=== PATIENT | female | born 1970 | race Caucasian/White ===

== ENCOUNTER 2017-02-12 15:29 | Emergency (ER) | payer OTHER ==
[~2017-02-12] VITALS: Ht 167.6 cm; Wt 72.7 kg
[2017-02-12 15:44] VITALS: Ht 167.6 cm; Wt 72.7 kg
[2017-02-12 16:22] LABS: ADD UMIC YES; URINE BILIRUBIN (Dip) 1+ (NEGATIVE); URINE BLOOD (Dip) NEGATIVE (NEGATIVE); URINE COLOR YELLOW (YELLOW); URINE GLUCOSE (Dip) NEGATIVE (NEGATIVE); URINE KETONES (Dip) 3+ (NEGATIVE); URINE LEUKOCYTE ESTERASE (Dip) NEGATIVE (NEGATIVE); URINE NITRITE (Dip) NEGATIVE (NEGATIVE); URINE TOTAL PROTEIN (Dip) 2+ (NEGATIVE); URINE UROBILINOGEN (Dip) 0.2 E.U./dL (0.1-1.0)
[2017-02-12 16:29] LABS: ADD SCAN DIFF NO
[2017-02-12 16:30] LABS: BASOPHILS % 0.3 % (0.0-2.0); EOSINOPHILS % 0.1 % (0.0-7.0); HEMATOCRIT 46.8 % (37.0-47.0); HEMOGLOBIN 15.3 g/dl (12.0-16.0); LYMPHOCYTES # 1.4 10^3/ul (0.8-2.9); LYMPHOCYTES % 14.3 % (15.0-51.0); MEAN CORPUSCULAR HGB CONC 32.7 g/dl (32.0-37.0); MEAN CORPUSCULAR VOLUME 88.6 fl (82.0-101.0); MEAN PLATELET VOLUME 11.1 fl (7.4-10.4); MONOCYTE # 0.5 10^3/ul (0.3-0.9); MONOCYTES % 5.2 % (0.0-11.0); NEUTROPHILS % 79.8 % (39.0-77.0); PLATELET COUNT 228 10^3/UL (140-415); RED BLOOD COUNT 5.28 10^6/ul (4.20-5.40); RED CELL DISTRIBUTION WIDTH 12.8 % (11.5-14.5)
[2017-02-12 16:35] LABS: ICTOTEST NEGATIVE (NEGATIVE); SQUAMOUS EPITHELIAL CELL,UR MODERATE
[2017-02-12 16:36] LABS: BACTERIA,URINE FEW; MUCUS,URINE MODERATE; URINE RBCS NONE SEEN /HPF (0)
[2017-02-12 16:40] LABS: ALBUMIN 5.1 g/dl (3.3-4.9); POTASSIUM 3.8 mmol/L (3.5-5.1)
[2017-02-12 16:42] LABS: CREATININE 0.62 mg/dl (0.44-1.00)
[2017-02-12 16:43] LABS: ALBUMIN/GLOBULIN RATIO 1.41; BILIRUBIN,INDIRECT 0.4 mg/dl (0-1.1); BILIRUBIN,TOTAL 0.4 mg/dl (0.2-1.3); TOTAL PROTEIN 8.7 g/dl (6.1-8.1)
[2017-02-12 16:44] LABS: CALCIUM 9.7 mg/dl (8.4-10.2)
[2017-02-12] MEDS ORDERED: QUET200T PO (17:28)
[2017-02-12] MEDS ORDERED: VENL150T PO (17:28)
[2017-02-12] MEDS ORDERED: CYCL5TAB PO (17:29)
[2017-02-12] MEDS ORDERED: OMEG10006 PO (17:29)
[2017-02-12] MEDS ORDERED: ESTR1TAB23 PO (17:30)
[2017-02-12] MEDS ORDERED: HYDR200T39 PO (17:30)
--- NOTE | 2017-02-12 18:46 | RADRPT ---
PROCEDURE: CT brain without contrast CLINICAL INDICATION: Altered level of consciousness TECHNIQUE: CT of the brain without contrast performed on a multidetector CT scanner, with multiplan ar reformats. One or more of the following dose reduction techniques were used: Automated exposure control, adjustment in mA and / or kV according to patient size, use of iterative reconstructive chayito hnique. CTDIvol = 43 mGy; DLP = a 720 mGy-cm. COMPARISON: None available FINDINGS: No acute intracranial hemorrhage is identified. No extra-axial fluid collection is seen. There is no mass effect. No midline shift is identified. Ventricles and sulci are mildly enlarged compatible with volume loss. The density of the brain is unremarkable. Lerma-white differentiation is preserved. Osseous structures are unremarkable. Mastoid air cells and imaged paranasal sinuses grossly clear. IMPRESSION: 1. No evidence of acute intracranial pathology. 2. Mild volume loss. RPTAT: EE .Frankie Robles MD, MD Date Time Electronically viewed and signed by .Frankie Robles MD, MD on 02/12/2017 18:46 .O/
[2017-02-12] MEDS ORDERED: SOD CHLORIDE 0.9% 500 ML IV ONE (19:00)
--- NOTE | 2017-02-12 21:19 | PSY ---
Date/Time of Note Date/Time of Note DATE: 02/12/17 TIME: 21:12 Psychiatric Subjective Eval Consent Pt consented to telemedicine: Yes Subjective Evaluation Patient location: emergency Chief Complaint: Brought in by EMS for "emotional behaviour", patient not speaking Reason for consult: Psychiatric evaluation History of present illness Patient is a 46 year old female with a known history of schizophrenia who was brought in after neighbors reported that they had not seen her and she had been acting emotional. Pt has been mute for about one year and has not provided much information. Pt is willing to nod "yes" or "no" to some questions. She admits to be admitted to psychiatric facilities before and also admits to past suicide attempts. She did nod "yes" for feeling sad, not sleeping and hearing voices/sounds that might not be there. These voices bother her. She nodded "no " to suicidal ideation. For some questions she would raise her right arm into the air and perform a movement. Past psychiatric history Schizophrenia. Not on medications Hospitalization: yes Family History Unknown Medical history See medical record. None known. Allergies: Coded Allergies: No Known Allergy (Unverified , 02/12/17) Substance Abuse Substance use: No known substance abuse Social History Marital status: (POssibly going through divorce per report) Level of education: Unknown DPA/Conservatorship: No Occupation/Care Home: Unknown Psychiatric Objective Eval Physical Examination: Physical Examination: Applicable Sleep: Insomnia Mental Status Examination: Appearance: Disheveled Eye Contact: Fair Psychomotor Activity: Slow Behavior: Bizarre Speech: Other (Mostly mute) AFFECT: Flat Mood: Depressed Though Process: Illogical Thought Content: Hallucinations Suicidal: No Homicidal: No On 72 hour hold: No Orientation: x2 Cognition: Alert Insight: Impared Judgement: Impared Laboratory Results Laboratory Tests Test 02/12/17 16:07 02/12/17 16:17 02/12/17 16:19 02/12/17 16:20 Urine Color YELLOW Urine Clarity CLOUDY Urine pH 5.5 Urine Specific [place] >=1.030 Urine Ketones 3+ Urine Nitrite NEGATIVE Urine Bilirubin 1+ Urine Ictotest NEGATIVE Urine Urobilinogen 0.2 E.U./dL Urine Leukocyte Esterase NEGATIVE Urine Microscopic RBC NONE SEEN/HPF Urine Microscopic WBC 0-2/HPF Urine Squamous Epithelial Cells MODERATE Urine Amorphous Urates FEW Urine Bacteria FEW Urine Hyaline Casts FEW Urine Mucus MODERATE Urine Hemoglobin NEGATIVE Urine Glucose NEGATIVE% Urine Total Protein 2+ Bedside Glucose 83mg/dL White Blood Count 10.010^3/ul Red Blood Count 5.2810^6/ul Hemoglobin 15.3g/dl Hematocrit 46.8% Mean Corpuscular Volume 88.6fl Mean Corpuscular Hemoglobin 29.0pg Mean Corpuscular Hemoglobin Concent 32.7g/dl Red Cell Distribution Width 12.8% Platelet Count 30126^3/UL Mean Platelet Volume 11.1fl Neutrophils % 79.8% Lymphocytes % 14.3% Monocytes % 5.2% Eosinophils % 0.1% Basophils % 0.3% Nucleated Red Blood Cells % 0.0/100WBC Neutrophils # 8.010^3/ul Lymphocytes # 1.410^3/ul Monocytes # 0.510^3/ul Eosinophils # 0.010^3/ul Basophils # 0.010^3/ul Nucleated Red Blood Cells # 0.010^3/ul Sodium Level 144mmol/L Potassium Level 3.8mmol/L Chloride Level 103mmol/L Carbon Dioxide Level 26mmol/L Anion Gap 19 Blood Urea Nitrogen 9mg/dl Creatinine 0.62mg/dl Glucose Level 88mg/dl Calcium Level 9.7mg/dl Total Bilirubin 0.4mg/dl Direct Bilirubin 0.00mg/dl Indirect Bilirubin 0.4mg/dl Aspartate Amino Transf (AST/SGOT) 22IU/L Alanine Aminotransferase (ALT/SGPT) 24IU/L Alkaline Phosphatase 70IU/L Total Protein 8.7g/dl Albumin 5.1g/dl Globulin 3.60g/dl Albumin/Globulin Ratio 1.41 Lactic Acid Level 1.2mmol/L Assessment and Plan Assessment/Diagnosis [place] I: F20.9 Schizophrenia Recommendation/Plan Medication Management Per inpatient psychiatry. Psychotherapy N.A Pt. Caregiver/Family Education N/A Follow-up/Disposition Please initiate 5150 for grave disability and danger to self. While she shakes her head "no" for suicidal ideation, she is a risk for self harm due to the GD. 5150 Recommendation: Josse SATNAM Melara Feb 12, 2017 21:19
[2017-02-12 22:05] LABS: BARBITURATES Negative (NEGATIVE); BENZODIAZEPINES Negative (NEGATIVE); CANNABINOIDS Negative (NEGATIVE); COCAINE Negative (NEGATIVE); OPIATES Negative (NEGATIVE)
--- NOTE | 2017-02-13 00:27 | ERD ---
ER Documentation Chief Complaint Date/Time DATE: 02/13/17 TIME: 00:22 Chief Complaint Brought in by EMS for "emotional behaviour", patient not speaking HPI 38-year-old female brought in by EMS for decrease communication and staying in bed all the time, not taking psychiatric medications and generally decreased mental status and weakness. Patient's friend who is present emergency room is the one who sent her here. Patient is not answering many questions but is willing to speak to me in Maltese. She states that she has not taken her medications for several days but denies any pain except for feeling very depressed. Her friend states that she has gotten this way before when she does not take her medications. She denies nausea or vomiting. She is not an excellent historian and refuses to answer some questions. ROS All systems reviewed and are negative except as per history of present illness the patient is refusing answer some questions and may not be reliable.. Medications Home Meds Reported Medications Estradiol* (Estrace*) 1 Mg Tablet, 0.5 MG PO DAILY, TAB 02/12/17 Hydroxychloroquine Sulfate* (Hydroxychloroquine Sulfate*) 200 Mg Tablet, 200 MG PO BID, TAB 02/12/17 Cyclobenzaprine Hcl* (Cyclobenzaprine Hcl*) 5 Mg Tablet, 5 MG PO QHS Y for MUSCLE SPASMS, #60 TAB 02/12/17 [place]-3 Fatty Acids (OMEGA-3) 1,000 Mg Capsule, 1000 MG PO BID, CAP 02/12/17 Quetiapine Fumarate* (Seroquel*) 200 Mg Tablet, 200 MG PO HS, #30 TAB 02/12/17 Venlafaxine Hcl* (Venlafaxine Hcl ER*) 150 Mg Tab.er.24, 150 MG PO DAILY, TAB.SA 02/12/17 Allergies Allergies: Coded Allergies: No Known Allergy (Unverified , 02/12/17) PMhx/Soc Medical and Surgical Hx: Unable to obtain Hx Alcohol Use: No Hx Substance Use: No Hx Tobacco Use: No Smoking Status: Never smoker Physical Exam Vitals Vital Signs Date Time Temp Pulse Resp B/P Pulse Ox O2 Delivery O2 Flow Rate FiO2 02/13/17 00:00 79 18 140/82 98 Room Air 02/12/17 19:56 99.2 100 16 165/96 Room Air 02/12/17 15:44 97.2 100 18 185/98 100 Physical Exam Const: [] No distress Head: Atraumatic Eyes: Normal Conjunctiva ENT: Normal External Ears, Nose and Mouth. Neck: Full range of motion..~ No meningismus. Resp: Clear to auscultation bilaterally Cardio: Regular rate and rhythm, no murmurs Abd: Soft, non tender, non distended. Normal bowel sounds Skin: No petechiae or rashes Back: No midline or flank tenderness Ext: No cyanosis, or edema Neur: Awake and alert Psych: Normal Mood and Affect Result Diagram: 02/12/17 1619 02/12/17 1619 Results 24 hrs Laboratory Tests Test 02/12/17 16:07 02/12/17 16:17 02/12/17 16:19 02/12/17 16:20 Urine Color YELLOW Urine Clarity CLOUDY Urine pH 5.5 Urine Specific [place] >=1.030 Urine Ketones 3+ Urine Nitrite NEGATIVE Urine Bilirubin 1+ Urine Ictotest NEGATIVE Urine Urobilinogen 0.2 E.U./dL Urine Leukocyte Esterase NEGATIVE Urine Microscopic RBC NONE SEEN/HPF Urine Microscopic WBC 0-2/HPF Urine Squamous Epithelial Cells MODERATE Urine Amorphous Urates FEW Urine Bacteria FEW Urine Hyaline Casts FEW Urine Mucus MODERATE Urine Hemoglobin NEGATIVE Urine Glucose NEGATIVE% Urine Total Protein 2+ Urine Opiates Screen Negative Urine Barbiturates Negative Urine Amphetamines Screen Negative Urine Benzodiazepines Screen Negative Urine Cocaine Screen Negative Urine Cannabinoids Negative Bedside Glucose 83mg/dL White Blood Count 10.010^3/ul Red Blood Count 5.2810^6/ul Hemoglobin 15.3g/dl Hematocrit 46.8% Mean Corpuscular Volume 88.6fl Mean Corpuscular Hemoglobin 29.0pg Mean Corpuscular Hemoglobin Concent 32.7g/dl Red Cell Distribution Width 12.8% Platelet Count 15775^3/UL Mean Platelet Volume 11.1fl Neutrophils % 79.8% Lymphocytes % 14.3% Monocytes % 5.2% Eosinophils % 0.1% Basophils % 0.3% Nucleated Red Blood Cells % 0.0/100WBC Neutrophils # 8.010^3/ul Lymphocytes # 1.410^3/ul Monocytes # 0.510^3/ul Eosinophils # 0.010^3/ul Basophils # 0.010^3/ul Nucleated Red Blood Cells # 0.010^3/ul Sodium Level 144mmol/L Potassium Level 3.8mmol/L Chloride Level 103mmol/L Carbon Dioxide Level 26mmol/L Anion Gap 19 Blood Urea Nitrogen 9mg/dl Creatinine 0.62mg/dl Glucose Level 88mg/dl Calcium Level 9.7mg/dl Total Bilirubin 0.4mg/dl Direct Bilirubin 0.00mg/dl Indirect Bilirubin 0.4mg/dl Aspartate Amino Transf (AST/SGOT) 22IU/L Alanine Aminotransferase (ALT/SGPT) 24IU/L Alkaline Phosphatase 70IU/L Total Protein 8.7g/dl Albumin 5.1g/dl Globulin 3.60g/dl Albumin/Globulin Ratio 1.41 Lactic Acid Level 1.2mmol/L Current Medications Medications (Trade) Dose Ordered Sig/Tristan Route PRN Reason Start Time Stop Time Status Last Admin Dose Admin Sodium Chloride (NS) 500 ml @ 500 mls/hr Q1H ONCE IV 02/12/17 19:00 02/12/17 19:59 DC 02/12/17 19:12 Haloperidol (Haldol) 5 mg ONCE ONCE IM 02/13/17 00:00 02/13/17 00:01 DC 02/12/17 23:43 Procedures/MDM Patient with major depression secondary to being off medications. Performed a workup to rule out organic causes of her decreased mental status. She has a negative head CT and essentially normal laboratories without any signs of infection organic cause of her behavior. She was evaluated by a [facility] who recommended a 5150. She is medically cleared from my standpoint meeting I see no medical condition precluded her from psychiatric admission, but I do believe she'll benefit from the most. She remained calm in motion this for several hours after which she woke up screaming a few words and then began masturbating in the hallway several times in spite of instructions to stop that behavior. She was then given 5 mg of Haldol IM which did help with the symptoms. CT head interpretation: I see no acute process, no hemorrhage, no mass effect no midline shift, no skull fracture. Departure Diagnosis: Primary Impression: Major depression Condition: TEE Ennis DO Feb 13, 2017 00:27
[2017-02-13] MEDS ORDERED: LORAZEPAM 1 MG TAB PO ONE ×2 (17:00→20:00)
[2017-02-13] MEDS ORDERED: HALOPERIDOL 5 MG INJ IM ONE ×2 (21:00)
[2017-02-14 14:04] VITALS: BP 146/92; PULSE 96; RESP 20; TEMP 98.3
== END 2017-02-14 14:21 ==
LOC: E/R 15:29
DX: F32.9 Major depressive disorder, single episode, unspecified (principal); R40.2142 Coma scale, eyes open, spontaneous, at arrival to emergency department; R40.2352 Coma scale, best motor response, localizes pain, at arrival to emergency department; R40.2212 Coma scale, best verbal response, none, at arrival to emergency department
CPT/HCPCS: 70450; 80053; 80306; 80307; 81001; 82962; 83605; 85025; J1630; J7040; Z7610; 36415; 81003; 96360; 96372; P9612